=== PATIENT | male | born 1990 | race American Indian/Alaskan Native ===

== ENCOUNTER 2018-11-14 11:21 | Emergency (ER) | payer SELFPAY ==
[2018-11-14] MEDS ORDERED: HYDROmorphone 1 MG/1 ML INJ IV ONE (11:55)
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
[2018-11-14 12:32] LABS: INR 1.02 (0.87-1.13)
[2018-11-14 12:33] LABS: Partial Thromboplastin Time 30.4 Sec. (24.2-36.6)
[2018-11-14 12:36] LABS: Alanine Aminotransferase 5 units/L (7-56); Albumin 3.8 g/dL (3.9-5); BUN/Creatinine Ratio 11; Blood Urea Nitrogen 13 mg/dL (9-20); Calcium 9.4 mg/dL (8.4-10.2); Hemolysis Index 3
[2018-11-14] MEDS ORDERED: SODIUM CHLORIDE 0.9% 1000 ML 1,000 ML IV ONE (12:46)
[2018-11-14 12:49] LABS: Hematocrit 42.7 % (35.5-45.6); Hemoglobin 14.5 gm/dl (11.8-15.2); Mean Corpuscular HGB Conc 34 % (32-34); Mean Corpuscular Volume 91 fl (84-94); Platelet Count 369 K/mm3 (140-440); Red Blood Count 4.68 M/mm3 (3.65-5.03); Red Cell Distribution Width 15.4 % (13.2-15.2)
--- NOTE | 2018-11-14 13:31 | Vascular Lab Report ---
DUPLEX DOPPLER LOWER EXTREMITY VEINS, RIGHT INDICATION: SEVERE R LEG PAIN. TECHNIQUE: Duplex doppler imaging was performed through the veins of the right lower extremity using venous compression and other maneuvers. COMPARISON: No relevant prior imaging study available. FINDINGS: Right Common femoral vein: Negative. Right Superficial femoral vein: Negative. Right Popliteal vein: Positive. Right Calf veins: Positive in the peroneal vein. Additional findings: None.. IMPRESSION: Positive for DVT as described. Signer Name: Troy Peña Jr, MD Signed: 11/14/2018 1:26 PM Workstation Name: [id number]
[2018-11-14 14:15] LABS: Basophils % (Manual) 0 % (0.0-1.8); Total Cells Counted 100
[2018-11-14 14:17] LABS: Stomatocytes Few
[2018-11-14] MEDS ORDERED: RIVAROXABAN 15 MG TAB PO ONE (15:31)
[2018-11-14] MEDS ORDERED: APIXABAN 5 MG TAB PO STA (15:35)
[2018-11-14 17:14] VITALS: BP 136/71
== END 2018-11-14 17:13 | disposition home or self-care (01) ==
LOC: ED 11:21
DX: I82.401 Acute embolism and thrombosis of unspecified deep veins of right lower extremity (principal); Z98.890 Other specified postprocedural states
CPT/HCPCS: 36415; 80053; 85007; 85025; 85610; 85730; 93971; 96374; 99284; J1170; J7030

== ENCOUNTER 2018-11-27 17:46 | Emergency (ER) | payer SELFPAY ==
--- NOTE | 2018-11-27 17:58 | Emergency Department Report ---
Blank Doc - Documentation Documentation: 28-year-old male that presents with right leg pain with history of DVT to right leg. This initial assessment/diagnostic orders/clinical plan/treatment(s) is/are subject to change based on patient's health status, clinical progression and re- assessment by fellow clinical providers in the ED. Further treatment and workup at subsequent clinical providers discretion. Patient/guardians urged not to elope from the ED as their condition may be serious if not clinically assessed and managed. Initial orders include: 1- Patient sent to [facility] for further evaluation and treatment 2- US doppler for DVT
[2018-11-27 18:40] LABS: BUN/Creatinine Ratio 11; Blood Urea Nitrogen 16 mg/dL (9-20); Hemolysis Index 4
[2018-11-27 19:08] LABS: Basophils % (Auto) 0.5 % (0.0-1.8); Eosinophils # (Auto) 0.2 K/mm3 (0.0-0.4); Hematocrit 44.1 % (35.5-45.6); Hemoglobin 14.6 gm/dl (11.8-15.2); Lymphocytes # (Auto) 2.4 K/mm3 (1.2-5.4); Lymphocytes % (Auto) 47.2 % (13.4-35.0); Mean Corpuscular HGB Conc 33 % (32-34); Mean Corpuscular Volume 90 fl (84-94); Monocytes # (Auto) 0.5 K/mm3 (0.0-0.8); Monocytes % (Auto) 9.6 % (0.0-7.3); Platelet Count 234 K/mm3 (140-440); Red Blood Count 4.89 M/mm3 (3.65-5.03); Red Cell Distribution Width 14.6 % (13.2-15.2)
[2018-11-27 19:15] LABS: INR 1.03 (0.87-1.13)
[2018-11-27 19:16] LABS: Partial Thromboplastin Time 30.9 Sec. (24.2-36.6)
[2018-11-27] MEDS ORDERED: TORADOL IM ONE (20:39)
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
== END 2018-11-27 21:43 | disposition left against medical advice (07) ==
LOC: ED 17:46
DX: M79.604 Pain in right leg (principal); R29.810 Facial weakness; Z98.890 Other specified postprocedural states; Z79.899 Other long term (current) drug therapy
CPT/HCPCS: 36415; 80048; 85025; 85610; 85730; 96372; 99283; J1885